=== PATIENT | male | born 1955 | race Caucasian/White ===

== ENCOUNTER 2018-09-22 12:29 | Inpatient (IN) | payer OTHER ==
[~2018-09-22] VITALS: Ht 180.3 cm; Wt 92.7 kg
--- NOTE | ~2018-09-22 | EKG ---
[place], [place] ELECTROCARDIOGRAM REPORT NAME: PHANI COURTNEY UNIT #: [id number] ROOM: 531 DOCTOR: ROSSY DRAFT REPORT BIRTHDATE: [address] [facility] Test Date: 2018-09-26 Test Time: 06:30:05 Pat Name: PHANI COURTNEY Department: Room: 531 1 Gender: M Electrolytic De Scaler: : 1955 Requested By: KEITH ALEXANDER Order Number: [id number] Reading MD: Jasvir Blanco MD Measurements Intervals [place] Rate: 83 P: ID: QRS: 48 QRSD: 84 T: 204 QT: 382 QTc: 449 Interpretive Statements Atrial fibrillation Ventricular premature complex or aberrant conduction Probable LVH with secondary repol abnrm Anterior Q waves, possibly due to LVH Compared to ECG 09/22/2018 12:41:07 Ventricular premature complex(es) now present Left ventricular hypertrophy now present Q waves now present Myocardial infarct finding no longer present Electronically Signed On 09-26-2018 9:59:32 PDT by Jasvir Blnaco MD CM:EKGRPT:ELECTROCARDIOGRAM REPORT [id number] KEITH ASHBY DRAFT REPORT KEITH ALEXANDER DO
--- NOTE | ~2018-09-22 | EKG ---
[place], [place] ELECTROCARDIOGRAM REPORT NAME: PHANI COURTNEY UNIT #: [id number] ROOM: 531 DOCTOR: ROSSY DRAFT REPORT BIRTHDATE: [birth year] [facility] Test Date: 2018-09-22 Test Time: 12:41:07 Pat Name: PHANI COURTNEY Department: Room: 531 Gender: M Ingot Weigher: Bhavani Donnelly : 1955 Requested By: MELONY WORTHY Order Number: [id number] Reading MD: Ernie Vega MD Measurements Intervals [place] Rate: 79 P: TX: QRS: 38 QRSD: 73 T: 179 QT: 387 QTc: 444 Interpretive Statements Atrial fibrillation Probable anteroseptal infarct, recent Electronically Signed On 09-23-2018 13:46:54 PDT by Ernie Vega MD CM:EKGRPT:ELECTROCARDIOGRAM REPORT [id number] MELONY ASHBY DRAFT REPORT MELONY WORTHY DO
--- NOTE | ~2018-09-22 | EKG ---
[place], [place] ELECTROCARDIOGRAM REPORT NAME: PHANI COURTNEY UNIT #: [id number] ROOM: 531 DOCTOR: ROSSY DRAFT REPORT BIRTHDATE: [birth year] [facility] Test Date: 2018-09-26 Test Time: 03:29:48 Pat Name: PHANI COURTNEY Department: Room: 531 1 Gender: M Work Order Clerk: SS RESP : 1955 Requested By: SANDRA GUEVARA Order Number: [id number] Reading MD: Jasvir Blanco MD Measurements Intervals [place] Rate: 107 P: OR: QRS: 51 QRSD: 81 T: 182 QT: 324 QTc: 433 Interpretive Statements Atrial fibrillation Probable anterior infarct, age indeterminate Lateral leads are also involved ST/ T changes suggestive of lateral wall ischemia. Compared to ECG 09/22/2018 12:41:07 No significant changes Electronically Signed On 09-26-2018 9:50:13 PDT by Jasvir Blanco MD CM:EKGRPT:ELECTROCARDIOGRAM REPORT [id number] SANDRA ASHBY DRAFT REPORT SANDRA GUEVARA DO
[~2018-09-22 12:29] MED LIST: ANAPROX DS550 MG PO; FLEXERIL5 MG PO; VICODIN 5/500 505 MG PO
[2018-09-22 12:32] VITALS: BP 158/90
[2018-09-22 13:09] LABS: BASO % 0.4 % (0.0-1.0); EOS # 0.1 10*3/uL (0.0-0.4); EOS % 1.1 % (1.0-4.0); HEMATOCRIT 48.4 % (42.0-52.0); HEMOGLOBIN 16.5 g/dl (14.0-18.0); LYMPH # 1.9 10*3/uL (1.3-4.4); LYMPH % 22.2 % (27.0-41.0); MEAN CELL VOLUME 95.7 fl (80.0-94.0); MEAN CORPUSCULAR HGB 32.6 pg (27.0-31.0); MEAN CORPUSCULAR HGB CONC 34.1 g/dl (33.0-37.0); MONO # 0.8 10*3/uL (0.1-1.0); MONO % 9.3 % (3.0-9.0); NEUT # 5.6 10*3/uL (2.3-7.9); NEUT % 66.6 % (47.0-73.0); PLATELET COUNT AUTOMATED 196 10*3/uL (130-400); RED BLOOD COUNT 5.06 10*6/uL (4.50-5.90); RED CELL DISTRI WIDTH 13.8 % (0-14.5); WHITE BLOOD COUNT 8.5 10*3/uL (4.8-10.8)
[2018-09-22 13:17] LABS: ACT PARTIAL THROMBO TIME 25.5 SECONDS (20.8-31.5)
[2018-09-22 13:32] LABS: ALKALINE PHOSPHATASE 92 U/L (45-117); BUN 22 mg/dl (7-24); CHLORIDE 104 mmol/L (98-107); LIPASE 166 U/L (73-393); POTASSIUM 4.1 mmol/L (3.5-5.1); SGOT/AST 20 IU/L (3-35); SGPT/ALT 32 U/L (12-78); SODIUM 141 mmol/L (136-145); TOTAL PROTEIN 8.5 gm/dL (6.4-8.2); TROPONIN I 0.019 ng/ml (<0.045)
[2018-09-22 15:45] VITALS: BP 133/90
[2018-09-22 17:03] LABS: CSF RBC < 1000 /uL; CSF WBC 3 /uL
[2018-09-22 17:07] LABS: CSF GLUCOSE 73 mg/dL (40-70); CSF TOTAL PROTEIN 39.1 mg/dL (15-45)
[2018-09-22 17:25] LABS: CLARITY CLEAR; COLOR COLORLESS
[2018-09-22 17:29] VITALS: BP 139/88
[2018-09-22 17:38] LABS: CSF LYMPHOCYTES 89 % (40-80); CSF MONOCYTES 11 % (15-45)
[2018-09-22 19:35] VITALS: BP 160/86
[2018-09-22 20:04] VITALS: BP 160/86
[2018-09-23] VITALS: BP 150/80
[2018-09-23 06:15] LABS: BASO % 0.4 % (0.0-1.0); EOS # 0.2 10*3/uL (0.0-0.4); EOS % 2.5 % (1.0-4.0); HEMATOCRIT 45.1 % (42.0-52.0); HEMOGLOBIN 14.9 g/dl (14.0-18.0); MEAN CELL VOLUME 96.8 fl (80.0-94.0); MEAN PLATELET VOLUME 10.1 fl (9.6-12.3); MONO # 0.7 10*3/uL (0.1-1.0); MONO % 10.2 % (3.0-9.0); NEUT # 3.8 10*3/uL (2.3-7.9); NEUT % 56.6 % (47.0-73.0); PLATELET COUNT AUTOMATED 187 10*3/uL (130-400); RED BLOOD COUNT 4.66 10*6/uL (4.50-5.90); RED CELL DISTRI WIDTH 13.6 % (0-14.5); WHITE BLOOD COUNT 6.7 10*3/uL (4.8-10.8)
[2018-09-23 06:46] LABS: BUN 19 mg/dl (7-24); CHLORIDE 108 mmol/L (98-107); CHOLESTEROL 162 mg/dL (<200); CREATININE 1.01 mg/dL (0.70-1.30); PHOSPHOROUS 3.5 mg/dL (2.5-4.9); SODIUM 141 mmol/L (136-145); TRIGLYCERIDES 94 mg/dl (<150); VLDL CHOLESTEROL 19 mg/dL (6-40)
[2018-09-23 06:58] LABS: HDL CHOLESTEROL 36 mg/dl (40-60); LDL CHOLESTEROL 107 mg/dL (9-159); THYROID STIM HORMONE (HS) 0.683 uIU/ml (0.358-4.75)
[2018-09-23 08:00] VITALS: BP 160/80
[2018-09-23] MEDS ORDERED: METOPROLOL TART50 M1 PO (09:54)
[2018-09-23] MEDS ORDERED: MAGNESIUM400 M1 PO (09:55)
[2018-09-23] MEDS ORDERED: VITAMIN D22000 UNIT PO (10:03)
[2018-09-23] MEDS ORDERED: LASIX40 MG PO (10:05)
[2018-09-23] MEDS ORDERED: POTASSIUM600 MG PO (10:05)
[2018-09-23] MEDS ORDERED: K-TAB10 MEQ PO (10:09)
[2018-09-23] MEDS ORDERED: FLUCONAZOLE200 MG PO (10:10)
[2018-09-23 12:00] VITALS: BP 158/94
[2018-09-23 20:00] VITALS: BP 146/89
[2018-09-24] VITALS: BP 152/95
[2018-09-24 06:06] LABS: BASO # 0.1 10*3/uL (0.0-0.1); BASO % 0.6 % (0.0-1.0); EOS # 0.2 10*3/uL (0.0-0.4); EOS % 2.3 % (1.0-4.0); HEMOGLOBIN 15.9 g/dl (14.0-18.0); LYMPH # 2.8 10*3/uL (1.3-4.4); LYMPH % 32.6 % (27.0-41.0); MEAN CORPUSCULAR HGB 32.4 pg (27.0-31.0); MEAN CORPUSCULAR HGB CONC 33.1 g/dl (33.0-37.0); MEAN PLATELET VOLUME 10.3 fl (9.6-12.3); MONO # 0.9 10*3/uL (0.1-1.0); MONO % 10.3 % (3.0-9.0); NEUT # 4.6 10*3/uL (2.3-7.9); NEUT % 53.8 % (47.0-73.0); PLATELET COUNT AUTOMATED 196 10*3/uL (130-400); RED CELL DISTRI WIDTH 13.6 % (0-14.5); WHITE BLOOD COUNT 8.5 10*3/uL (4.8-10.8)
[2018-09-24 06:28] LABS: ALBUMIN 3.7 gm/dl (3.1-4.5); ALKALINE PHOSPHATASE 87 U/L (45-117); BUN 22 mg/dl (7-24); CHLORIDE 107 mmol/L (98-107); CREATININE 1.15 mg/dL (0.70-1.30); POTASSIUM 4.3 mmol/L (3.5-5.1); SGOT/AST 16 IU/L (3-35); SGPT/ALT 27 U/L (12-78); SODIUM 141 mmol/L (136-145); TOTAL PROTEIN 7.9 gm/dL (6.4-8.2)
[2018-09-24 08:00] VITALS: BP 158/81
[2018-09-24 08:12] LABS: HEPATITIS B SURFACE AG Negative (Negative)
[2018-09-24 16:00] VITALS: BP 158/83
[2018-09-25 07:28] LABS: BASO # 0.1 10*3/uL (0.0-0.1); BASO % 0.6 % (0.0-1.0); EOS # 0.2 10*3/uL (0.0-0.4); EOS % 2.3 % (1.0-4.0); HEMATOCRIT 47.5 % (42.0-52.0); HEMOGLOBIN 16.2 g/dl (14.0-18.0); LYMPH # 2.4 10*3/uL (1.3-4.4); LYMPH % 29.3 % (27.0-41.0); MEAN CORPUSCULAR HGB 32.7 pg (27.0-31.0); MEAN CORPUSCULAR HGB CONC 34.1 g/dl (33.0-37.0); MEAN PLATELET VOLUME 10.3 fl (9.6-12.3); MONO # 0.7 10*3/uL (0.1-1.0); MONO % 9.1 % (3.0-9.0); NEUT # 4.7 10*3/uL (2.3-7.9); NEUT % 58.3 % (47.0-73.0); PLATELET COUNT AUTOMATED 176 10*3/uL (130-400); RED BLOOD COUNT 4.95 10*6/uL (4.50-5.90); RED CELL DISTRI WIDTH 13.7 % (0-14.5); WHITE BLOOD COUNT 8.1 10*3/uL (4.8-10.8)
[2018-09-25 07:54] LABS: BUN 20 mg/dl (7-24); CHLORIDE 107 mmol/L (98-107); SODIUM 140 mmol/L (136-145)
[2018-09-25 08:00] VITALS: BP 161/99; BP 166/90
[2018-09-25 12:00] VITALS: BP 151/94
[2018-09-25 15:06] LABS: HSV-2 DNA Negative (Negative)
[2018-09-25 16:00] VITALS: BP 156/81
[2018-09-25 20:00] VITALS: BP 157/94
[2018-09-25 20:30] VITALS: BP 168/108
[2018-09-26] VITALS (8 sets, daily range): BP systolic 126–190; BP diastolic 78–112
[2018-09-26 04:17] LABS: BUN 18 mg/dl (7-24); CHLORIDE 109 mmol/L (98-107); CREATININE 1.15 mg/dL (0.70-1.30); POTASSIUM 3.7 mmol/L (3.5-5.1); SODIUM 139 mmol/L (136-145)
[2018-09-26 11:47] LABS: HEPATITIS C VIRUS ANTIBODY >11.0 s/co (0.0-0.9)
[2018-09-26] MEDS ORDERED: METOPROLOL TART50 M1 PO (12:02)
[2018-10-24 15:34] LABS: CSF CRYPTOCOCCUS AG Positive (Negative)
== END 2018-09-26 12:44 | disposition home or self-care (01) | DRG 98 ==
LOC: ED 12:29 → EDHOLD 18:08 → 5E 18:08
PROVIDERS: Emergency Medicine; Internal Medicine; Student in an Organized Health Care Education/Training Program; ADMIT Internal Medicine
PROC: 009U3ZX Drainage of Spinal Canal, Percutaneous Approach, Diagnostic (ICD-10-PCS; principal; 2018-09-22)
DX: B45.1 Cerebral cryptococcosis (principal); I48.1 Persistent atrial fibrillation; J44.9 Chronic obstructive pulmonary disease, unspecified; D75.89 Other specified diseases of blood and blood-forming organs; N18.3 Chronic kidney disease, stage 3 (moderate); R73.9 Hyperglycemia, unspecified; E83.41 Hypermagnesemia; E66.3 Overweight; I35.0 Nonrheumatic aortic (valve) stenosis; I12.9 Hypertensive chronic kidney disease with stage 1 through stage 4 chronic kidney disease, or unspecified chronic kidney disease; R91.1 Solitary pulmonary nodule; I48.2 Chronic atrial fibrillation; Z87.891 Personal history of nicotine dependence; Z82.49 Family history of ischemic heart disease and other diseases of the circulatory system; Z82.3 Family history of stroke

== ENCOUNTER 2020-09-01 06:05 | Inpatient (IN) | payer OTHER ==
[~2020-09-01] VITALS: Wt 101.6 kg
[~2020-09-01 06:05] MED LIST changes: +FLUCONAZOLE200 MG PO; +K-TAB10 MEQ PO; +LASIX40 MG PO; +MAGNESIUM400 M1 PO; +METOPROLOL TART50 M1 PO; +POTASSIUM600 MG PO; +VITAMIN D22000 UNIT PO
[2020-09-01 06:40] VITALS: BP 139/84
[2020-09-01 08:51] LABS: BASO # 0.1 10*3/uL (0.0-0.1); BASO % 0.6 % (0.0-1.0); EOS # 0.2 10*3/uL (0.0-0.4); EOS % 1.7 % (1.0-4.0); HEMATOCRIT 41.8 % (42.0-52.0); LYMPH # 1.7 10*3/uL (1.3-4.4); LYMPH % 16.1 % (27.0-41.0); MEAN CELL VOLUME 100.7 fl (80.0-94.0); MEAN CORPUSCULAR HGB 32.3 pg (27.0-31.0); MEAN CORPUSCULAR HGB CONC 32.1 g/dl (33.0-37.0); MEAN PLATELET VOLUME 10.1 fl (9.6-12.3); MONO # 1.1 10*3/uL (0.1-1.0); MONO % 10.2 % (3.0-9.0); NEUT # 7.3 10*3/uL (2.3-7.9); NEUT % 70.5 % (47.0-73.0); PLATELET COUNT AUTOMATED 208 10*3/uL (130-400); RED BLOOD COUNT 4.15 10*6/uL (4.50-5.90); RED CELL DISTRI WIDTH 16.1 % (0-14.5); WHITE BLOOD COUNT 10.3 10*3/uL (4.8-10.8)
[2020-09-01 09:07] LABS: ACT PARTIAL THROMBO TIME 26.3 SECONDS (20.0-32.1); ALBUMIN 3.6 gm/dl (3.1-4.5); CREATININE 1.44 mg/dL (0.70-1.30); POTASSIUM 4.1 mmol/L (3.5-5.1); TOTAL PROTEIN 7.7 gm/dL (6.4-8.2)
[2020-09-01 09:10] LABS: TROPONIN I 0.08 ng/ml (<0.045)
[2020-09-01 11:23] VITALS: BP 157/94
[2020-09-01 16:00] VITALS: BP 133/96
[2020-09-01 20:00] VITALS: BP 104/63
[2020-09-02] VITALS: BP 109/55
[2020-09-02 06:23] LABS: BASO % 0.4 % (0.0-1.0); EOS # 0.2 10*3/uL (0.0-0.4); EOS % 2.3 % (1.0-4.0); HEMATOCRIT 42.5 % (42.0-52.0); LYMPH # 1.5 10*3/uL (1.3-4.4); LYMPH % 16.7 % (27.0-41.0); MEAN CELL VOLUME 100.7 fl (80.0-94.0); MEAN CORPUSCULAR HGB 31.8 pg (27.0-31.0); MEAN CORPUSCULAR HGB CONC 31.5 g/dl (33.0-37.0); MEAN PLATELET VOLUME 10.3 fl (9.6-12.3); MONO # 1.1 10*3/uL (0.1-1.0); MONO % 11.9 % (3.0-9.0); NEUT # 6.1 10*3/uL (2.3-7.9); NEUT % 67.5 % (47.0-73.0); PLATELET COUNT AUTOMATED 196 10*3/uL (130-400); RED BLOOD COUNT 4.22 10*6/uL (4.50-5.90); RED CELL DISTRI WIDTH 16.3 % (0-14.5); WHITE BLOOD COUNT 9.1 10*3/uL (4.8-10.8)
[2020-09-02 06:43] LABS: ALBUMIN 3.2 gm/dl (3.1-4.5); BUN 25 mg/dl (7-24); CHLORIDE 107 mmol/L (98-107); POTASSIUM 3.6 mmol/L (3.5-5.1); SGOT/AST 10 IU/L (3-35); SGPT/ALT 26 U/L (12-78); SODIUM 139 mmol/L (136-145)
[2020-09-02 06:50] LABS: ALKALINE PHOSPHATASE 106 U/L (45-117); CHOLESTEROL 157 mg/dL (<200); CREATININE 1.39 mg/dL (0.70-1.30); HDL CHOLESTEROL 46 mg/dl (40-60); LDL CHOLESTEROL 99 mg/dL (9-159); TOTAL PROTEIN 7.3 gm/dL (6.4-8.2); TRIGLYCERIDES 61 mg/dl (<150); VLDL CHOLESTEROL 12 mg/dL (6-40)
[2020-09-02] MEDS ORDERED: LASIX40 MG PO ×2 (09:05)
[2020-09-02] MEDS ORDERED: CEPHALEXIN500 M1 PO ×2 (09:05)
[2020-09-02] MEDS ORDERED: K-TAB20 MEQ PO (09:05)
[2020-09-02 10:25] LABS: VITAMIN D, 25-HYDROXY 43.8 ng/mL (30-100)
== END 2020-09-02 09:24 | disposition home or self-care (01) | DRG 383 ==
LOC: ED 06:05 → EDHOLD 09:57 → 5E 12:08
PROVIDERS: Emergency Medicine; Student in an Organized Health Care Education/Training Program; ADMIT Student in an Organized Health Care Education/Training Program; ATTEND Student in an Organized Health Care Education/Training Program
DX: L03.115 Cellulitis of right lower limb (principal); I11.0 Hypertensive heart disease with heart failure; L03.116 Cellulitis of left lower limb; N17.0 Acute kidney failure with tubular necrosis; D53.9 Nutritional anemia, unspecified; E83.41 Hypermagnesemia; R17 Unspecified jaundice; I48.91 Unspecified atrial fibrillation; J44.9 Chronic obstructive pulmonary disease, unspecified; F12.90 Cannabis use, unspecified, uncomplicated; Z87.891 Personal history of nicotine dependence; Z82.3 Family history of stroke; Z79.899 Other long term (current) drug therapy; I50.23 Acute on chronic systolic (congestive) heart failure

== ENCOUNTER 2020-09-14 15:47 | Inpatient (IN) | payer OTHER ==
[~2020-09-14] VITALS: Ht 180 cm; Wt 101.0 kg
[~2020-09-14 15:47] MED LIST changes: +CEPHALEXIN500 M1 PO; +K-TAB20 MEQ PO
[2020-09-14 15:48] VITALS: BP 157/93
[2020-09-14 16:14] LABS: BASO % 0.5 % (0.0-1.0); EOS # 0.1 10*3/uL (0.0-0.4); HEMATOCRIT 46.6 % (42.0-52.0); LYMPH % 24.8 % (27.0-41.0); MEAN CORPUSCULAR HGB 32.6 pg (27.0-31.0); MONO # 0.9 10*3/uL (0.1-1.0); MONO % 11.2 % (3.0-9.0); NEUT # 4.9 10*3/uL (2.3-7.9); NEUT % 62.1 % (47.0-73.0); PLATELET COUNT AUTOMATED 256 10*3/uL (130-400); RED BLOOD COUNT 4.57 10*6/uL (4.50-5.90); RED CELL DISTRI WIDTH 16.8 % (0-14.5); WHITE BLOOD COUNT 7.9 10*3/uL (4.8-10.8)
[2020-09-14 16:30] LABS: ACT PARTIAL THROMBO TIME 27.2 SECONDS (20.0-32.1); ALBUMIN 3.8 gm/dl (3.1-4.5); CREATININE 1.7 mg/dL (0.70-1.30); INTERNATIONAL NORM RATIO 1.1 (2.0-3.5); POTASSIUM 4.3 mmol/L (3.5-5.1); TOTAL PROTEIN 7.4 gm/dL (6.4-8.2)
[2020-09-14 16:33] LABS: TROPONIN I 0.07 ng/ml (<0.045)
[2020-09-14 17:09] VITALS: BP 139/107
[2020-09-14 17:27] VITALS: BP 142/109
[2020-09-14 18:30] VITALS: BP 118/96
[2020-09-14 20:00] VITALS: BP 127/88
[2020-09-14 20:31] VITALS: BP 142/94
[2020-09-15] VITALS: BP 130/92
[2020-09-15 05:10] LABS: BASO # 0.1 10*3/uL (0.0-0.1); BASO % 0.9 % (0.0-1.0); EOS # 0.1 10*3/uL (0.0-0.4); EOS % 1.6 % (1.0-4.0); HEMATOCRIT 46.5 % (42.0-52.0); LYMPH # 2.2 10*3/uL (1.3-4.4); LYMPH % 27.9 % (27.0-41.0); MEAN CORPUSCULAR HGB 32.3 pg (27.0-31.0); MEAN CORPUSCULAR HGB CONC 30.8 g/dl (33.0-37.0); MEAN PLATELET VOLUME 10.4 fl (9.6-12.3); MONO % 12.3 % (3.0-9.0); NEUT # 4.4 10*3/uL (2.3-7.9); NEUT % 56.9 % (47.0-73.0); PLATELET COUNT AUTOMATED 234 10*3/uL (130-400); RED BLOOD COUNT 4.43 10*6/uL (4.50-5.90); RED CELL DISTRI WIDTH 17.1 % (0-14.5); WHITE BLOOD COUNT 7.7 10*3/uL (4.8-10.8)
[2020-09-15 05:46] LABS: ALBUMIN 3.4 gm/dl (3.1-4.5); CREATININE 1.6 mg/dL (0.70-1.30); POTASSIUM 3.8 mmol/L (3.5-5.1)
[2020-09-15 05:53] LABS: THYROID STIM HORMONE (HS) 1.94 uIU/ml (0.358-4.75)
[2020-09-15 08:00] VITALS: BP 137/90
[2020-09-15 12:00] VITALS: BP 130/83
[2020-09-15 16:00] VITALS: BP 132/87
[2020-09-15 20:00] VITALS: BP 134/79
[2020-09-16] VITALS: BP 147/92
[2020-09-16 06:24] LABS: BASO # 0.1 10*3/uL (0.0-0.1); BASO % 0.7 % (0.0-1.0); EOS # 0.1 10*3/uL (0.0-0.4); EOS % 1.5 % (1.0-4.0); HEMATOCRIT 47.6 % (42.0-52.0); LYMPH # 1.3 10*3/uL (1.3-4.4); LYMPH % 18.5 % (27.0-41.0); MEAN CELL VOLUME 102.8 fl (80.0-94.0); MEAN CORPUSCULAR HGB CONC 31.1 g/dl (33.0-37.0); MEAN PLATELET VOLUME 10.2 fl (9.6-12.3); MONO % 14.6 % (3.0-9.0); NEUT # 4.6 10*3/uL (2.3-7.9); NEUT % 64.3 % (47.0-73.0); PLATELET COUNT AUTOMATED 226 10*3/uL (130-400); RED BLOOD COUNT 4.63 10*6/uL (4.50-5.90); RED CELL DISTRI WIDTH 16.5 % (0-14.5); WHITE BLOOD COUNT 7.1 10*3/uL (4.8-10.8)
[2020-09-16 06:30] LABS: CREATININE 1.51 mg/dL (0.70-1.30); POTASSIUM 3.6 mmol/L (3.5-5.1)
[2020-09-16 08:00] VITALS: BP 134/89; BP 142/72
[2020-09-16 12:00] VITALS: BP 111/70
[2020-09-16 16:00] VITALS: BP 117/72
[2020-09-16 20:00] VITALS: BP 127/86
[2020-09-17] VITALS: BP 142/84
[2020-09-17 06:24] LABS: BUN 23 mg/dl (7-24); CHLORIDE 106 mmol/L (98-107); POTASSIUM 3.5 mmol/L (3.5-5.1); SODIUM 141 mmol/L (136-145)
[2020-09-17 08:00] VITALS: BP 157/99
[2020-09-17 12:00] VITALS: BP 96/50
[2020-09-17 16:00] VITALS: BP 116/69
[2020-09-17] MEDS ORDERED: LASIX40 MG PO (16:29)
[2020-09-17] MEDS ORDERED: METOPROLOL TAR100 M1 PO ×2 (16:29)
== END 2020-09-17 18:52 | disposition home or self-care (01) | DRG 194 ==
LOC: ED 15:47 → EDHOLD 17:05 → 5E 17:05
PROVIDERS: Emergency Medicine; Hospitalist; ADMIT Internal Medicine; ATTEND Internal Medicine
DX: I13.0 Hypertensive heart and chronic kidney disease with heart failure and stage 1 through stage 4 chronic kidney disease, or unspecified chronic kidney disease (principal); I48.91 Unspecified atrial fibrillation; I83.009 Varicose veins of unspecified lower extremity with ulcer of unspecified site; L97.909 Non-pressure chronic ulcer of unspecified part of unspecified lower leg with unspecified severity; N18.30 Chronic kidney disease, stage 3 unspecified; N17.0 Acute kidney failure with tubular necrosis; J44.9 Chronic obstructive pulmonary disease, unspecified; I24.8 Other forms of acute ischemic heart disease; E66.9 Obesity, unspecified; E87.8 Other disorders of electrolyte and fluid balance, not elsewhere classified; E83.41 Hypermagnesemia; R73.9 Hyperglycemia, unspecified; I87.8 Other specified disorders of veins; R65.10 Systemic inflammatory response syndrome (SIRS) of non-infectious origin without acute organ dysfunction; I35.0 Nonrheumatic aortic (valve) stenosis; Z68.31 Body mass index [BMI] 31.0-31.9, adult; Z91.14 Patient's other noncompliance with medication regimen; Z82.3 Family history of stroke; Z79.899 Other long term (current) drug therapy; Z87.891 Personal history of nicotine dependence; I50.31 Acute diastolic (congestive) heart failure

== ENCOUNTER 2020-10-08 18:57 | Inpatient (IN) | payer OTHER ==
[~2020-10-08] VITALS: Ht 180.3 cm; Wt 101.6 kg
[~2020-10-08 18:57] MED LIST changes: +METOPROLOL TAR100 M1 PO
[2020-10-08 19:15] VITALS: BP 156/103
[2020-10-08 22:13] LABS: BILIRUBIN Negative (Negative); BLOOD Negative (Negative); CLARITY Clear (Clear); COLOR Yellow (Yellow); GLUCOSE Negative (Negative); KETONE Negative (Negative); LEUKO ESTERASE Negative (Negative); NITRITE Negative (Negative); SPECIFIC GRAVITY <= 1.005 (1.001-1.030); UROBILINOGEN 0.2 E.U./dl (0.0-1.0)
[2020-10-08 22:17] LABS: BASO % 0.3 % (0.0-1.0); EOS % 0.2 % (1.0-4.0); LYMPH # 1.8 10*3/uL (1.3-4.4); LYMPH % 19.9 % (27.0-41.0); MEAN CELL VOLUME 102.7 fl (80.0-94.0); MEAN CORPUSCULAR HGB 31.8 pg (27.0-31.0); MEAN PLATELET VOLUME 10.6 fl (9.6-12.3); MONO % 11.4 % (3.0-9.0); NEUT % 67.6 % (47.0-73.0); PLATELET COUNT AUTOMATED 246 10*3/uL (130-400); RED BLOOD COUNT 4.87 10*6/uL (4.50-5.90); RED CELL DISTRI WIDTH 16.1 % (0-14.5); WHITE BLOOD COUNT 8.8 10*3/uL (4.8-10.8)
[2020-10-08 22:29] LABS: CREATININE 2.11 mg/dL (0.70-1.30); POTASSIUM 3.6 mmol/L (3.5-5.1)
[2020-10-08 22:35] VITALS: BP 145/106
[2020-10-08 22:42] LABS: RBC 0-2 rbc/hpf (0-2)
[2020-10-08 23:57] VITALS: BP 155/88
[2020-10-09] VITALS (9 sets, daily range): BP systolic 111–145; BP diastolic 83–105
[2020-10-09 06:17] LABS: BASO % 0.4 % (0.0-1.0); EOS % 0.4 % (1.0-4.0); HEMATOCRIT 48.9 % (42.0-52.0); LYMPH # 2.3 10*3/uL (1.3-4.4); LYMPH % 25.3 % (27.0-41.0); MEAN CORPUSCULAR HGB 32.1 pg (27.0-31.0); MEAN CORPUSCULAR HGB CONC 30.9 g/dl (33.0-37.0); MEAN PLATELET VOLUME 10.8 fl (9.6-12.3); MONO # 1.1 10*3/uL (0.1-1.0); MONO % 12.1 % (3.0-9.0); NEUT # 5.5 10*3/uL (2.3-7.9); NEUT % 61.1 % (47.0-73.0); PLATELET COUNT AUTOMATED 240 10*3/uL (130-400)
[2020-10-09 06:31] LABS: ALBUMIN 3.6 gm/dl (3.1-4.5); POTASSIUM 3.5 mmol/L (3.5-5.1)
[2020-10-09 06:39] LABS: CREATININE 2.03 mg/dL (0.70-1.30); FREE T4 1.15 ng/dl (0.76-1.46); THYROID STIM HORMONE (HS) 2.7 uIU/ml (0.358-4.75); TOTAL PROTEIN 7.2 gm/dL (6.4-8.2)
[2020-10-09] MEDS ORDERED: TOPROL XL50 M1 PO (08:07)
[2020-10-09] MEDS ORDERED: MAGNESIUM400 MG PO (08:08)
[2020-10-09] MEDS ORDERED: METOPROLOL SUCC25 M2 PO (08:10)
[2020-10-09] MEDS ORDERED: Lopressor25 MG PO (08:10)
[2020-10-10] VITALS: BP 128/81
[2020-10-10 06:16] LABS: BASO # 0.1 10*3/uL (0.0-0.1); BASO % 0.6 % (0.0-1.0); EOS # 0.1 10*3/uL (0.0-0.4); EOS % 1.4 % (1.0-4.0); HEMATOCRIT 46.7 % (42.0-52.0); LYMPH % 22.3 % (27.0-41.0); MEAN CELL VOLUME 103.8 fl (80.0-94.0); MEAN CORPUSCULAR HGB 31.8 pg (27.0-31.0); MEAN CORPUSCULAR HGB CONC 30.6 g/dl (33.0-37.0); MEAN PLATELET VOLUME 10.3 fl (9.6-12.3); MONO # 1.3 10*3/uL (0.1-1.0); MONO % 14.2 % (3.0-9.0); NEUT # 5.4 10*3/uL (2.3-7.9); PLATELET COUNT AUTOMATED 226 10*3/uL (130-400); RED CELL DISTRI WIDTH 16.2 % (0-14.5); WHITE BLOOD COUNT 8.8 10*3/uL (4.8-10.8)
[2020-10-10 06:27] LABS: CREATININE 1.84 mg/dL (0.70-1.30); POTASSIUM 3.5 mmol/L (3.5-5.1)
[2020-10-10 08:00] VITALS: BP 156/86
[2020-10-10 12:00] VITALS: BP 125/85
[2020-10-10 16:00] VITALS: BP 130/88
[2020-10-10 20:00] VITALS: BP 115/76
[2020-10-11] VITALS: BP 120/68
[2020-10-11 06:41] LABS: BASO # 0.1 10*3/uL (0.0-0.1); BASO % 0.6 % (0.0-1.0); EOS # 0.1 10*3/uL (0.0-0.4); EOS % 1.3 % (1.0-4.0); HEMATOCRIT 48.5 % (42.0-52.0); LYMPH % 24.9 % (27.0-41.0); MEAN CELL VOLUME 102.8 fl (80.0-94.0); MEAN CORPUSCULAR HGB CONC 31.1 g/dl (33.0-37.0); MEAN PLATELET VOLUME 10.2 fl (9.6-12.3); MONO # 1.1 10*3/uL (0.1-1.0); MONO % 13.2 % (3.0-9.0); NEUT # 4.7 10*3/uL (2.3-7.9); NEUT % 59.4 % (47.0-73.0); PLATELET COUNT AUTOMATED 219 10*3/uL (130-400); RED BLOOD COUNT 4.72 10*6/uL (4.50-5.90); RED CELL DISTRI WIDTH 15.9 % (0-14.5)
[2020-10-11 06:56] LABS: CREATININE 1.59 mg/dL (0.70-1.30); POTASSIUM 3.3 mmol/L (3.5-5.1)
[2020-10-11 08:00] VITALS: BP 144/104; BP 146/92
[2020-10-11] MEDS ORDERED: METOPROLOL TAR100 M1 PO (11:05)
[2020-10-11] MEDS ORDERED: LASIX80 MG PO (11:06)
== END 2020-10-11 14:13 | disposition home or self-care (01) | DRG 194 ==
LOC: ED 18:57 → EDHOLD 23:22 → 5E 23:22
PROVIDERS: Emergency Medicine; Internal Medicine; Social Worker Clinical; ADMIT Family Medicine; ATTEND Family Medicine
DX: I13.0 Hypertensive heart and chronic kidney disease with heart failure and stage 1 through stage 4 chronic kidney disease, or unspecified chronic kidney disease (principal); I50.33 Acute on chronic diastolic (congestive) heart failure; N17.0 Acute kidney failure with tubular necrosis; L03.119 Cellulitis of unspecified part of limb; E87.8 Other disorders of electrolyte and fluid balance, not elsewhere classified; R73.9 Hyperglycemia, unspecified; Z91.14 Patient's other noncompliance with medication regimen; I48.91 Unspecified atrial fibrillation; E87.6 Hypokalemia; L89.621 Pressure ulcer of left heel, stage 1; J44.9 Chronic obstructive pulmonary disease, unspecified; I83.009 Varicose veins of unspecified lower extremity with ulcer of unspecified site; R00.0 Tachycardia, unspecified; N18.30 Chronic kidney disease, stage 3 unspecified; E83.41 Hypermagnesemia; Z87.891 Personal history of nicotine dependence; Z82.3 Family history of stroke; Z79.899 Other long term (current) drug therapy; Z79.01 Long term (current) use of anticoagulants

== ENCOUNTER 2020-10-14 02:00 | Inpatient (IN) | payer OTHER ==
[2020-10-14] VITALS (8 sets, daily range): BP systolic 123–157; BP diastolic 71–111
[~2020-10-14] VITALS: Ht 180.3 cm; Wt 100.8 kg
[~2020-10-14 02:00] MED LIST changes: +LASIX80 MG PO; +Lopressor25 MG PO; +MAGNESIUM400 MG PO; +METOPROLOL SUCC25 M2 PO; +TOPROL XL50 M1 PO
[2020-10-14 02:51] LABS: BASO % 0.3 % (0.0-1.0); EOS % 0.5 % (1.0-4.0); HEMATOCRIT 47.2 % (42.0-52.0); LYMPH # 1.3 10*3/uL (1.3-4.4); LYMPH % 17.2 % (27.0-41.0); MEAN CELL VOLUME 102.8 fl (80.0-94.0); MEAN CORPUSCULAR HGB 31.8 pg (27.0-31.0); MEAN CORPUSCULAR HGB CONC 30.9 g/dl (33.0-37.0); MONO # 0.8 10*3/uL (0.1-1.0); MONO % 9.6 % (3.0-9.0); NEUT # 5.6 10*3/uL (2.3-7.9); NEUT % 71.8 % (47.0-73.0); PLATELET COUNT AUTOMATED 190 10*3/uL (130-400); RED BLOOD COUNT 4.59 10*6/uL (4.50-5.90); RED CELL DISTRI WIDTH 15.6 % (0-14.5); WHITE BLOOD COUNT 7.8 10*3/uL (4.8-10.8)
[2020-10-14 03:00] LABS: INTERNATIONAL NORM RATIO 1.1 (2.0-3.5)
[2020-10-14 03:08] LABS: ALBUMIN 3.4 gm/dl (3.1-4.5); CREATININE 1.64 mg/dL (0.70-1.30); POTASSIUM 3.6 mmol/L (3.5-5.1); TOTAL PROTEIN 7.1 gm/dL (6.4-8.2)
[2020-10-14 03:11] LABS: TROPONIN I 0.887 ng/ml (<0.045)
[2020-10-14 06:11] LABS: BASO % 0.4 % (0.0-1.0); EOS % 0.1 % (1.0-4.0); HEMATOCRIT 48.6 % (42.0-52.0); LYMPH % 19.3 % (27.0-41.0); MEAN CELL VOLUME 103.4 fl (80.0-94.0); MEAN CORPUSCULAR HGB 31.7 pg (27.0-31.0); MEAN CORPUSCULAR HGB CONC 30.7 g/dl (33.0-37.0); MEAN PLATELET VOLUME 10.4 fl (9.6-12.3); MONO # 0.9 10*3/uL (0.1-1.0); MONO % 8.7 % (3.0-9.0); NEUT # 7.5 10*3/uL (2.3-7.9); PLATELET COUNT AUTOMATED 194 10*3/uL (130-400); RED CELL DISTRI WIDTH 15.6 % (0-14.5); WHITE BLOOD COUNT 10.5 10*3/uL (4.8-10.8)
[2020-10-14 06:16] LABS: ALBUMIN 3.5 gm/dl (3.1-4.5); CREATININE 1.64 mg/dL (0.70-1.30); POTASSIUM 3.9 mmol/L (3.5-5.1); TOTAL PROTEIN 7.3 gm/dL (6.4-8.2)
[2020-10-15] VITALS: BP 153/102
[2020-10-15 06:51] LABS: BASO % 0.4 % (0.0-1.0); EOS # 0.1 10*3/uL (0.0-0.4); EOS % 0.7 % (1.0-4.0); HEMATOCRIT 47.1 % (42.0-52.0); LYMPH % 22.5 % (27.0-41.0); MEAN CELL VOLUME 103.1 fl (80.0-94.0); MEAN CORPUSCULAR HGB 31.7 pg (27.0-31.0); MEAN CORPUSCULAR HGB CONC 30.8 g/dl (33.0-37.0); MEAN PLATELET VOLUME 10.1 fl (9.6-12.3); MONO # 0.9 10*3/uL (0.1-1.0); MONO % 10.3 % (3.0-9.0); NEUT # 5.9 10*3/uL (2.3-7.9); NEUT % 65.7 % (47.0-73.0); PLATELET COUNT AUTOMATED 156 10*3/uL (130-400); RED BLOOD COUNT 4.57 10*6/uL (4.50-5.90); RED CELL DISTRI WIDTH 15.7 % (0-14.5)
[2020-10-15 07:19] LABS: ALBUMIN 3.3 gm/dl (3.1-4.5); ALKALINE PHOSPHATASE 99 U/L (45-117); BUN 29 mg/dl (7-24); CHLORIDE 107 mmol/L (98-107); CREATININE 1.36 mg/dL (0.70-1.30); POTASSIUM 3.7 mmol/L (3.5-5.1); SGOT/AST 28 IU/L (3-35); SGPT/ALT 24 U/L (12-78); SODIUM 139 mmol/L (136-145); TOTAL PROTEIN 6.9 gm/dL (6.4-8.2)
[2020-10-15 08:00] VITALS: BP 132/105
[2020-10-15 12:00] VITALS: BP 116/83
[2020-10-15] MEDS ORDERED: IMDUR SA30 MG PO (15:28)
[2020-10-15] MEDS ORDERED: ASPIRIN ADULT L81 M2 PO (15:28)
[2020-10-15] MEDS ORDERED: ATORVASTATIN CA80 M1 PO (15:28)
[2020-10-15 16:00] VITALS: BP 111/76
== END 2020-10-15 21:50 | disposition home or self-care (01) | DRG 190 ==
LOC: ED 02:00 → 5E 04:57 → EDHOLD 04:57 → 5E 05:14
PROVIDERS: Emergency Medicine; Hospitalist; ADMIT Internal Medicine; ATTEND Internal Medicine
PROC: 02HV33Z Insertion of Infusion Device into Superior Vena Cava, Percutaneous Approach (ICD-10-PCS; principal; 2020-10-14)
DX: I21.4 Non-ST elevation (NSTEMI) myocardial infarction (principal); I13.0 Hypertensive heart and chronic kidney disease with heart failure and stage 1 through stage 4 chronic kidney disease, or unspecified chronic kidney disease; I48.91 Unspecified atrial fibrillation; I50.33 Acute on chronic diastolic (congestive) heart failure; N17.0 Acute kidney failure with tubular necrosis; J44.9 Chronic obstructive pulmonary disease, unspecified; I73.9 Peripheral vascular disease, unspecified; N18.32 Chronic kidney disease, stage 3b; R73.9 Hyperglycemia, unspecified; Z91.14 Patient's other noncompliance with medication regimen; I27.20 Pulmonary hypertension, unspecified; I08.1 Rheumatic disorders of both mitral and tricuspid valves; Z82.3 Family history of stroke; Z87.891 Personal history of nicotine dependence; Z79.899 Other long term (current) drug therapy

== ENCOUNTER 2020-10-17 11:26 | Inpatient (IN) | payer OTHER ==
[~2020-10-17] VITALS: Ht 180.3 cm; Wt 102.1 kg
[~2020-10-17 11:26] MED LIST changes: +ASPIRIN ADULT L81 M2 PO; +ATORVASTATIN CA80 M1 PO; +IMDUR SA30 MG PO
[2020-10-17 11:28] VITALS: BP 155/111
[2020-10-17 11:49] LABS: BASO % 0.4 % (0.0-1.0); EOS % 0.1 % (1.0-4.0); HEMATOCRIT 44.1 % (42.0-52.0); LYMPH # 1.5 10*3/uL (1.3-4.4); LYMPH % 17.2 % (27.0-41.0); MEAN CELL VOLUME 102.8 fl (80.0-94.0); MEAN CORPUSCULAR HGB 32.2 pg (27.0-31.0); MEAN CORPUSCULAR HGB CONC 31.3 g/dl (33.0-37.0); MEAN PLATELET VOLUME 10.1 fl (9.6-12.3); MONO % 11.7 % (3.0-9.0); PLATELET COUNT AUTOMATED 151 10*3/uL (130-400); RED BLOOD COUNT 4.29 10*6/uL (4.50-5.90); RED CELL DISTRI WIDTH 15.5 % (0-14.5); WHITE BLOOD COUNT 8.6 10*3/uL (4.8-10.8)
[2020-10-17 11:59] LABS: ACT PARTIAL THROMBO TIME 25.9 SECONDS (20.0-32.1); INTERNATIONAL NORM RATIO 1.1 (2.0-3.5)
[2020-10-17 12:04] LABS: ALBUMIN 3.4 gm/dl (3.1-4.5); CREATININE 1.67 mg/dL (0.70-1.30); POTASSIUM 3.9 mmol/L (3.5-5.1)
[2020-10-17 12:08] LABS: TROPONIN I 0.209 ng/ml (<0.045)
[2020-10-17 13:08] VITALS: BP 160/110
[2020-10-17 14:40] VITALS: BP 168/121
[2020-10-17 15:00] VITALS: BP 164/110
[2020-10-17 16:00] VITALS: BP 145/94
[2020-10-17 20:00] VITALS: BP 131/95
[2020-10-18 06:13] LABS: ALBUMIN 3.3 gm/dl (3.1-4.5); BUN 27 mg/dl (7-24); CHLORIDE 108 mmol/L (98-107); CREATININE 1.41 mg/dL (0.70-1.30); POTASSIUM 3.4 mmol/L (3.5-5.1); SGOT/AST 20 IU/L (3-35); SGPT/ALT 25 U/L (12-78); SODIUM 140 mmol/L (136-145)
[2020-10-18 06:17] LABS: ALKALINE PHOSPHATASE 97 U/L (45-117); CHOLESTEROL 131 mg/dL (<200); HDL CHOLESTEROL 40 mg/dl (40-60); LDL CHOLESTEROL 73 mg/dL (9-159); TOTAL PROTEIN 6.8 gm/dL (6.4-8.2); TRIGLYCERIDES 88 mg/dl (<150); VLDL CHOLESTEROL 18 mg/dL (6-40)
[2020-10-18 08:00] VITALS: BP 135/99
[2020-10-18 12:00] VITALS: BP 138/97
[2020-10-18 16:00] VITALS: BP 128/84
[2020-10-18 20:00] VITALS: BP 135/94
[2020-10-19] VITALS: BP 128/79
[2020-10-19 06:37] LABS: BUN 21 mg/dl (7-24); CHLORIDE 108 mmol/L (98-107); CREATININE 1.39 mg/dL (0.70-1.30); POTASSIUM 3.1 mmol/L (3.5-5.1); SODIUM 143 mmol/L (136-145)
[2020-10-19 08:39] VITALS: BP 144/90
[2020-10-19] MEDS ORDERED: METOPROLOL TAR100 M1 PO (11:09)
[2020-10-19 12:00] VITALS: BP 118/82
== END 2020-10-19 16:49 | disposition home or self-care (01) | DRG 194 ==
LOC: ED 11:26 → EDHOLD 12:53 → 4E 12:53
PROVIDERS: Emergency Medicine; Family Medicine; Student in an Organized Health Care Education/Training Program; ADMIT Family Medicine; ATTEND Family Medicine
DX: I13.0 Hypertensive heart and chronic kidney disease with heart failure and stage 1 through stage 4 chronic kidney disease, or unspecified chronic kidney disease (principal); N17.9 Acute kidney failure, unspecified; D53.9 Nutritional anemia, unspecified; E11.22 Type 2 diabetes mellitus with diabetic chronic kidney disease; E11.65 Type 2 diabetes mellitus with hyperglycemia; N18.30 Chronic kidney disease, stage 3 unspecified; R79.89 Other specified abnormal findings of blood chemistry; R79.82 Elevated C-reactive protein (CRP); I48.20 Chronic atrial fibrillation, unspecified; I21.4 Non-ST elevation (NSTEMI) myocardial infarction; E87.6 Hypokalemia; I87.2 Venous insufficiency (chronic) (peripheral); R00.0 Tachycardia, unspecified; E87.8 Other disorders of electrolyte and fluid balance, not elsewhere classified; J44.9 Chronic obstructive pulmonary disease, unspecified; I08.3 Combined rheumatic disorders of mitral, aortic and tricuspid valves; I27.20 Pulmonary hypertension, unspecified; Z53.20 Procedure and treatment not carried out because of patient's decision for unspecified reasons; I50.33 Acute on chronic diastolic (congestive) heart failure; E11.51 Type 2 diabetes mellitus with diabetic peripheral angiopathy without gangrene; E83.41 Hypermagnesemia; Z91.14 Patient's other noncompliance with medication regimen; Z87.891 Personal history of nicotine dependence; Z82.3 Family history of stroke; Z82.49 Family history of ischemic heart disease and other diseases of the circulatory system; I25.2 Old myocardial infarction; Z79.82 Long term (current) use of aspirin; Z79.899 Other long term (current) drug therapy

== ENCOUNTER 2020-10-30 04:51 | Inpatient (IN) | payer OTHER ==
[~2020-10-30] VITALS: Ht 180.3 cm; Wt 96.2 kg
[2020-10-30] VITALS (14 sets, daily range): BP systolic 109–151; BP diastolic 76–119
[2020-10-30 05:36] LABS: ALBUMIN 3.8 gm/dl (3.1-4.5); CREATININE 2.01 mg/dL (0.70-1.30); TOTAL PROTEIN 7.3 gm/dL (6.4-8.2)
[2020-10-30 05:38] LABS: TROPONIN I 0.106 ng/ml (<0.045)
[2020-10-30 05:54] LABS: BASO # 0.1 10*3/uL (0.0-0.1); BASO % 0.6 % (0.0-1.0); EOS % 0.2 % (1.0-4.0); HEMATOCRIT 44.9 % (42.0-52.0); LYMPH # 1.7 10*3/uL (1.3-4.4); LYMPH % 20.3 % (27.0-41.0); MEAN CELL VOLUME 99.6 fl (80.0-94.0); MEAN CORPUSCULAR HGB 31.9 pg (27.0-31.0); MEAN CORPUSCULAR HGB CONC 32.1 g/dl (33.0-37.0); MEAN PLATELET VOLUME 10.5 fl (9.6-12.3); MONO # 1.1 10*3/uL (0.1-1.0); NEUT # 5.3 10*3/uL (2.3-7.9); NEUT % 63.6 % (47.0-73.0); NUCLEATED RED BLOOD CELL 0.5 % (0.0-0.0); PLATELET COUNT AUTOMATED 286 10*3/uL (130-400); RED BLOOD COUNT 4.51 10*6/uL (4.50-5.90); RED CELL DISTRI WIDTH 15.5 % (0-14.5); WHITE BLOOD COUNT 8.4 10*3/uL (4.8-10.8)
[2020-10-31 06:16] LABS: POTASSIUM 3.9 mmol/L (3.5-5.1)
[2020-10-31 06:20] LABS: BASO # 0.1 10*3/uL (0.0-0.1); BASO % 0.8 % (0.0-1.0); EOS % 0.3 % (1.0-4.0); HEMATOCRIT 45.8 % (42.0-52.0); LYMPH # 1.6 10*3/uL (1.3-4.4); LYMPH % 18.1 % (27.0-41.0); MEAN CELL VOLUME 100.2 fl (80.0-94.0); MEAN CORPUSCULAR HGB 31.7 pg (27.0-31.0); MEAN CORPUSCULAR HGB CONC 31.7 g/dl (33.0-37.0); MEAN PLATELET VOLUME 10.3 fl (9.6-12.3); MONO # 1.1 10*3/uL (0.1-1.0); MONO % 12.1 % (3.0-9.0); NEUT # 5.8 10*3/uL (2.3-7.9); NEUT % 67.3 % (47.0-73.0); NUCLEATED RED BLOOD CELL 0.2 % (0.0-0.0); PLATELET COUNT AUTOMATED 282 10*3/uL (130-400); RED BLOOD COUNT 4.57 10*6/uL (4.50-5.90); RED CELL DISTRI WIDTH 15.7 % (0-14.5); WHITE BLOOD COUNT 8.7 10*3/uL (4.8-10.8)
[2020-10-31 06:27] LABS: ALBUMIN 3.6 gm/dl (3.1-4.5); CREATININE 1.8 mg/dL (0.70-1.30); TOTAL PROTEIN 6.8 gm/dL (6.4-8.2)
[2020-10-31 08:25] VITALS: BP 130/74
[2020-10-31 12:04] VITALS: BP 108/68
[2020-10-31 16:05] VITALS: BP 107/74
[2020-10-31 20:00] VITALS: BP 113/83
[2020-11-01] VITALS: BP 112/94
[2020-11-01 06:03] LABS: CREATININE 1.55 mg/dL (0.70-1.30); POTASSIUM 4.1 mmol/L (3.5-5.1)
[2020-11-01 08:00] VITALS: BP 131/91
[2020-11-01 12:00] VITALS: BP 117/79
[2020-11-01] MEDS ORDERED: XARE15TA PO (12:29)
[2020-11-01 16:00] VITALS: BP 115/68
[2020-11-01 20:00] VITALS: BP 113/71
[2020-11-02] VITALS: BP 117/81
[2020-11-02 06:46] LABS: BUN 25 mg/dl (7-24); CHLORIDE 107 mmol/L (98-107); CREATININE 1.38 mg/dL (0.70-1.30); POTASSIUM 3.7 mmol/L (3.5-5.1); SODIUM 139 mmol/L (136-145)
[2020-11-02 08:00] VITALS: BP 138/92
[2020-11-02 12:00] VITALS: BP 111/66
[2020-11-02 16:00] VITALS: BP 111/74
[2020-11-02 20:07] VITALS: BP 115/71
[2020-11-02 23:57] VITALS: BP 114/82
[2020-11-03 06:47] LABS: BUN 21 mg/dl (7-24); CHLORIDE 109 mmol/L (98-107); CREATININE 1.17 mg/dL (0.70-1.30); POTASSIUM 3.5 mmol/L (3.5-5.1); SODIUM 141 mmol/L (136-145)
[2020-11-03 08:00] VITALS: BP 124/70
[2020-11-03 12:00] VITALS: BP 97/64
[2020-11-03 16:00] VITALS: BP 92/63
[2020-11-03 20:00] VITALS: BP 114/77
[2020-11-04] VITALS: BP 124/82
[2020-11-04 08:00] VITALS: BP 150/95
== END 2020-11-04 14:45 | disposition short-term general hospital (02) | DRG 198 ==
LOC: ED 04:51 → 4E 06:01 → EDHOLD 06:01 → 4E 13:59
PROVIDERS: Hospitalist; Internal Medicine; Registered Nurse; ADMIT Internal Medicine; ATTEND Internal Medicine
DX: I25.119 Atherosclerotic heart disease of native coronary artery with unspecified angina pectoris (principal); I73.9 Peripheral vascular disease, unspecified; E44.0 Moderate protein-calorie malnutrition; I12.9 Hypertensive chronic kidney disease with stage 1 through stage 4 chronic kidney disease, or unspecified chronic kidney disease; N18.32 Chronic kidney disease, stage 3b; N17.0 Acute kidney failure with tubular necrosis; R65.10 Systemic inflammatory response syndrome (SIRS) of non-infectious origin without acute organ dysfunction; J44.9 Chronic obstructive pulmonary disease, unspecified; D75.89 Other specified diseases of blood and blood-forming organs; R73.9 Hyperglycemia, unspecified; E83.41 Hypermagnesemia; E80.6 Other disorders of bilirubin metabolism; I08.3 Combined rheumatic disorders of mitral, aortic and tricuspid valves; I87.2 Venous insufficiency (chronic) (peripheral); R74.01 Elevation of levels of liver transaminase levels; R06.82 Tachypnea, not elsewhere classified; I48.19 Other persistent atrial fibrillation; Z86.61 Personal history of infections of the central nervous system; Z79.01 Long term (current) use of anticoagulants; Z91.14 Patient's other noncompliance with medication regimen; Z87.891 Personal history of nicotine dependence; Z82.3 Family history of stroke; Z82.49 Family history of ischemic heart disease and other diseases of the circulatory system; I25.2 Old myocardial infarction; Z79.899 Other long term (current) drug therapy; Z79.82 Long term (current) use of aspirin; Z68.30 Body mass index [BMI] 30.0-30.9, adult